=== PATIENT | female | born 1980 | race Caucasian/White ===

== ENCOUNTER → 2016-05-22 | Outpatient (CLI) | payer OTHER | LOC: EMI 15:12 | DX: M54.5 Low back pain (principal) | CPT/HCPCS: 72148 ==

== ENCOUNTER 2021-02-01 19:43 | Emergency (ER) | payer OTHER ==
[2021-02-01 20:58] LABS: HEMOGLOBIN 10.3 gm/dl (12.3-15.3); RED BLOOD COUNT 4.91 M/UL (4.00-5.10); WHITE BLOOD COUNT 8.4 K/UL (4.5-11.0)
[2021-02-01 21:36] LABS: BUN/CREATININE RATIO 17 (0-10)
[2021-02-01] MEDS ORDERED: BENTYL 20MG TAB20 MG PO (23:14)
[2021-02-01] MEDS ORDERED: PROTONIX40 M1 PO (23:14)
== END 2021-02-01 23:35 | disposition home or self-care (01) ==
LOC: ER1 19:43
PROVIDERS: Physician Assistant
DX: R10.13 Epigastric pain (principal); F17.210 Nicotine dependence, cigarettes, uncomplicated; R10.816 Epigastric abdominal tenderness
CPT/HCPCS: 80053; 81001; 83690; 84703; 85025; 99284

== ENCOUNTER → 2021-09-22 | Outpatient (CLI) | payer OTHER ==
[~2021-09-22] MED LIST: BENTYL 20MG TAB20 MG PO; DOCUSATE SODIU250 MG PO; GABAPENTIN800 MG PO; HYDROCHLOROTHIA25 MG PO; HYDROCODONE-AC1 EACH PO; IBUPROFEN600 MG PO; LEVOTHYROXINE200 MC1 PO; OXYCODONE-ACET120 ML PO; PEPCID40 MG PO; PROAIR HFA8.5 GM INH; PROTONIX40 M1 PO; VENTOLIN/PROVE0.5 ML INH
[2021-09-22 09:28] LABS: RED BLOOD COUNT 3.65 M/UL (4.00-5.10); WHITE BLOOD COUNT 6.8 K/UL (4.5-11.0)
[2021-09-22 09:59] LABS: BUN/CREATININE RATIO 26 (0-10)
== END ==
LOC: OPSV2 08:00
PROVIDERS: Obstetrics & Gynecology
DX: Z01.818 Encounter for other preprocedural examination (principal); N81.4 Uterovaginal prolapse, unspecified
CPT/HCPCS: 80053; 81001; 85025; 93005

== ENCOUNTER → 2021-09-24 | Outpatient (CLI) | payer OTHER | LOC: LAB 08:15 | DX: Z01.812 Encounter for preprocedural laboratory examination (principal) | CPT/HCPCS: 86850; 86900; 86901; 86920; P9016 ==

== ENCOUNTER → 2021-09-25 | Day surgery (SDC) | payer OTHER ==
[2021-09-25 08:10] LABS: RED BLOOD COUNT 3.66 M/UL (4.00-5.10); WHITE BLOOD COUNT 8.4 K/UL (4.5-11.0)
[2021-09-25 08:17] LABS: HEMOGLOBIN 6.9 gm/dl (12.3-15.3)
== END | disposition home or self-care (01) ==
LOC: OR 07:22
PROVIDERS: Obstetrics & Gynecology
DX: D25.1 Intramural leiomyoma of uterus (principal); N87.9 Dysplasia of cervix uteri, unspecified; N72 Inflammatory disease of cervix uteri; E03.9 Hypothyroidism, unspecified; I10 Essential (primary) hypertension; J44.9 Chronic obstructive pulmonary disease, unspecified; E66.01 Morbid (severe) obesity due to excess calories; Z79.899 Other long term (current) drug therapy; Z68.28 Body mass index [BMI] 28.0-28.9, adult
CPT/HCPCS: 84703; 85027; C1769; J0690; J1100; J1170; J2001; J2250; J2405; J2704; J2710; J3010; P9016